=== PATIENT | male | born 1990 | race Caucasian/White ===

== ENCOUNTER 2024-06-13 11:42 | Emergency (ER) | payer OTHER, SELFPAY ==
--- OUTSIDE RECORDS SUMMARY | 2024-06-13 11:44 | XMS_ITS | Clinical Summary ---
Author Organization [employer] [facility] Address [place], [place] [address] Care Team Providers Care Technician Inventory Specialist Name Role Phone Pcp, No Primary Care Provider Unavailabl e Allergies Active Allergy Reactions Criticality Noted Date Comments Iodinated Contrast Media Hypertension 9 anxious Other reaction(s): Hypertension Iodine Hypertension 07/29/2018 [place] Flavor Anaphylaxis High 03/20/2016 Medications amLODIPine (NORVASC) 10 mg tablet Take 10 mg by mouth once daily. 2 Active propranoloL (INDERAL) 40 mg tablet Take 1 Tablet by mouth two times daily. 1 Active escitalopram oxalate (LEXAPRO) 20 mg tablet Take 1 Tablet by mouth once daily. 1 Active oseltamivir (TAMIFLU) 75 mg capsuleIndicatio ns:Influenza-lik e illness Take 1 Capsule (75 mg) by mouth two times daily for 5 days. 10 Capsule 5 06/13/19 25 Active predniSONE (DELTASONE) 20 mg tabletIndication s:Influenza-like illness,Communit y acquired pneumonia of right lung, unspecified part of lung Take 2 Tablets (40 mg) by mouth once daily with a meal for 5 days. 10 Tablet 5 06/13/19 25 Active azithromycin (ZITHROMAX) 500 mg tabletIndication s:Community acquired pneumonia of right lung, unspecified part of lung Take 1 Tablet (500 mg) by mouth every 24 hours for 5 days. 5 Tablet 5 06/13/19 25 Active amoxicillin-clav ulanate (AUGMENTIN) 875-125 mg tabletIndication s:Community acquired pneumonia of right lung, unspecified part of lung,Non-recurre nt acute suppurative otitis media of left ear without spontaneous rupture of tympanic membrane Take 1 Tablet by mouth two times daily with meals for 10 days. 20 Tablet 5 06/18/19 25 Active ibuprofen (ADVIL; MOTRIN) 200 mg tabletIndication s:Influenza-like illness Take 3 Tablets (600 mg) by mouth one time for 1 dose. 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 Idiopathic. ; Hypertension Polycythemia 06/26/2007 Overview (06/08/2024): Polycythemia, Etiology Uncertain Resolved Problems Problem Noted Date Diagnosed Date Resolved Date Hematuria, microscopic 12/21/201306/08 Generalized swelling, mass, or lump of abdomen or pelvis 01/11/2009 06/08/2024 Overview (06/08/2024): LW Modifier: Mar 14. Bx=Periaortic ganglioma. ; Mass Abdominal Site NOS Encounters Date Type Department Care Team Description 06/08/2024 2:05 PM REFRIGERATION PERSON Office Visit [facility] [address] [place] [address] Adilene Kapoor, DINA Influenza Like Illness 06/08/2024 Travel from Last 3 Months Family History Relation Name Status Comments Father Alive Mother Alive Social History Tobacco Use Types Packs/Day Years Used Date Smoking Tobacco: Former Cigarettes Q uit: 2018 Smokeless Tobacco: Never Tobacco Cessation:Counseling Given: Not Answered Alcohol Use Standard Drinks/Week Comments Never 0 (1 standard drink = 0.6 oz pur e alcohol) Sex and Gender Information Value Date Recorded Sex Assigned at Not on file Legal Sex Male 9:28 AM REFRIGERATION PERSON Gender Identity Not on file Sexual Orientation Not on file Obstetrics History Last Filed Vital Signs Vital Sign Reading Time Taken Comments Blood Pressure 149/90 06/08/2024 3:32 PM REFRIGERATION PERSON Pulse 101 06/08/2024 3:32 PM REFRIGERATION PERSON Temperature 38.2 C (100.7 F) 06/08/2024 3:32 PM REFRIGERATION PERSON Respiratory Rate 20 06/08/2024 3:32 PM REFRIGERATION PERSON Oxygen Saturation 97% 06/08/2024 3:32 PM REFRIGERATION PERSON Inhaled Oxygen Concentration - - Weight 99.8 kg (220 lb) 06/08/2024 3:32 PM REFRIGERATION PERSON Height 172.7 cm (5' 8) 03/18/2022 9:24 AM CDT Body Mass Index 33.45 03/18/2022 9:24 AM CDT Plan of Treatment Health Maintenance Due Date Last Done Comments Tdap 2002 Depression screening for age 12+ 2003 HIV for age 15-65 2006 BMI (ht and wt on same day) for age 18+ 2009 Hepatitis C screening for ag e 18-79 2009 Tetanus booster 2011 COVID-19 vaccine series ( season) 2024 09/14/2020, 08/23/2020 Influenza for age 9-49 02/06/2024 Pneumococcal series for age 6-49 Aged Out No longer eligible b ased on patient's age to complete this topic Procedures Procedure Name Priority Date/Time Associated Diagnosis Comments INFLUENZA A/B PCR Routine 06/08/2024 2:0 5 PM REFRIGERATION PERSON Influenza-like illness from Last 3 Months Results * (ABNORMAL) INFLUENZA A/B PCR (06/08/2024 2:05 PM REFRIGERATION PERSON) INFLUENZA A PCR Positive(A) 06/09/2024 2:35 PM REFRIGERATION PERSON [facility] INFLUENZA B PCR Negative 06/09/2024 2:35 PM REFRIGERATION PERSON [facility] Other SPECIMEN FROM NASAL FOSSAE / Unknown Non-Blood / Unknown 06/08/2024 2:05 PM REFRIGERATION PERSON 06/08/2024 4:14 PM REFRIGERATION PERSON Adilene Kapoor NP MICROBIOLOGY Final Result [facility] [address] [place] [id number], from Last 3 Months Additional Health Concerns Infection Onset Date Last Indicated INFLUENZA 06/08/2024 06/08/2024 Insurance [facility] [place] [id number] MEDICA ELECT MEDICA ELECT Care Teams Technician Inventory Specialist Relationship Specialty Start Date End Date Pcp, No . PCP - General 05/02/24
--- OUTSIDE RECORDS SUMMARY | 2024-06-13 11:44 | XMS_ITS | Clinical Summary ---
Author Organization [facility] Address [address] [place] [address] Care Team Providers Care Ict Customer Support Officer Name Role Phone Luis Carlos Church PA-C Unavailable [phone] Alberto Muhammad MD Unavailable Fly Barragan Primary Care Provider [phone] Allergies Active Allergy Reactions Criticality Noted Date Comments Iodinated Contrast Media 07/29/2018 Other reaction(s): Hypertension Iodine 07/29/2018 Other reaction(s): Hypertension [place] Flavoring Agent (Non-Screening) Anaphylaxis High 03/20/2016 Medications AMLODIPINE BESYLATE PO Take 20 mg by mouth daily Active ibuprofen (ADVIL/MOTRIN) 600 MG tablet Take 1 tablet (600 mg) by mouth every 6 hours as needed for moderate pain 30 tablet 1 8 Active Additional Information Patient not taking.Reported on 05/18/2022 neomycin-polymy kaleb-hydrocortis one (CORTISPORIN) 3.5-49542-5 otic solutionIndicat ions:Infective otitis externa, right Place 3 drops into the right ear 3 times daily 10 mL 2 Active Additional Information Patient not taking.Reported on 04/04/2023 busPIRone (BUSPAR) 5 MG tablet Take 5 mg by mouth daily Active gabapentin (NEURONTIN) 300 MG capsule Take 300 mg by mouth 4 Active ondansetron (ZOFRAN ODT) 4 MG ODT tab Take 1 tablet by mouth every 8 hours as needed 4 Active losartan (COZAAR) 50 MG tablet Take 50 mg by mouth daily 4 09/17/19 25 Active desvenlafaxine (PRISTIQ) 50 MG 24 hr tablet Take 50 mg by mouth daily 4 07/11/19 25 Active Active Problems Problem Noted Date Diagnosed Date Hematuria, microscopic 12/21/2013 Tobacco use 08/25/2012 Depression, major, recurrent, moderate 2 Anxiety 12/11/2010 Essential hypertension 01/11/2009 Overview (08/12/2020): Overview: LW Modifier: Dx: 2007. Idiopathic. ; Hypertension Generalized swelling, mass, or lump of abdomen o r pelvis 01/11/2009 Overview (08/12/2020): Overview: LW Modifier: Mar 14. Bx=Periaortic ganglioma. ; Mass Abdominal Site NOS Polycythemia 06/26/2007 Overview (08/12/2020): Overview: Polycythemia, Etiology Uncertain Immunizations Name Administration Dates Next Due Flu, Unspecified 04/03/2010,04/20/2007 HEPATITIS A (PEDS 12M-18Y) 01/11/2009,12/28/2007 HIB (PRP-T) 08/20/1992, 2,1991,03/14 HepB, Unspecified 04/27/2001,11/29/2000,10/12/19 Historical DTP/aP 08/20/1992, 2,1991,03/14 Influenza (H1N1) 04/06/2009 Influenza (prior to 2023) 06/10/2012,,04/03/2010,04/13,04/20/2007 Influenza Vaccine >6 months,quad, PF 02/14/2014, 03/03/2013 Influenza Vaccine IM Ages 6- 35 Months 4 Valent (PF) 03/03/2013 MMR 01/29/2003,08/20/1992 Meningococcal (Menomune ) 12/28/2007 Meningococcal ACWY (Menactra ) 12/28/2007 OPV, trivalent, live 10/04/1995,08/20/18 93,1991,03/14 TDAP (Adacel,Boostrix) 06/12/2020 TDAP Vaccine (Boostrix) 01/11/2009 Td (Adult), Adsorbed 01/29/2003 Social History Tobacco Use Types Packs/Day Years Used Date Smoking Tobacco: Every Day Vaping Device Smokeless Tobacco: Never Alcohol Use Standard Drinks/Week Comments Yes 0 (1 standard drink = 0.6 oz pur e alcohol) rarely PHQ-2 Answer Date Recorded PHQ-2 Score 0 03/19/2023 Adolescent Education Answer Date Record ed Getting School Help Needed Not on file 03/17 Sex and Gender Information Value Date Recorded Sex Assigned at Male 07/20/2021 10:03 PM TURRET LATHE SET UP OPERATOR Legal Sex Male 3:09 AM TURRET LATHE SET UP OPERATOR Gender Identity Male 07/20/2021 10:03 PM TURRET LATHE SET UP OPERATOR Sexual Orientation Straight 07/20/2021 10 :03 PM TURRET LATHE SET UP OPERATOR Last Filed Vital Signs Vital Sign Reading Time Taken Comments Blood Pressure 155/98 01/07/2024 5:48 PM CDT Pulse 75 01/07/2024 5:48 PM CDT Temperature 36.6 C (97.9 F) 01/07/2024 5:48 PM CDT Respiratory Rate 18 01/07/2024 5:48 PM CDT Oxygen Saturation 97% 01/07/2024 5:48 PM CDT Inhaled Oxygen Concentration - - Weight 105.2 kg (232 lb) 01/07/2024 5:48 PM CDT Height 172.7 cm (5' 8) 04/15/2023 10:56 AM TURRET LATHE SET UP OPERATOR Body Mass Index 35.28 04/15/2023 10:56 AM TURRET LATHE SET UP OPERATOR Plan of Treatment Health Maintenance Due Date Last Done Comments ADVANCE CARE PLANNING 1991 ANNUAL REVIEW OF HM ORDERS 1991 DEPRESSION ACTION PLAN 1991 NICOTINE/TOBACCO CESSATION COUNSELING Q 1 YR 1991 PHQ-9 1991 HIV SCREENING 2006 HEPATITIS C SCREENING 2009 Pneumococcal Vaccine: Pediatrics (0 to 5 Years) and At-Risk Patients (6 to 49 Years) (1 of 2 - PCV) 2010 YEARLY PREVENTIVE VISIT 07/22/2021 07/22/2020 BMP 08/02/2023 08/02/2022, 10/21/2009 COVID-19 Vaccine ( season) 2024 09/14/2020, 08/23/2020 INFLUENZA VACCINE (#1) 2024 4, 03/03/2013, 03/03/2013, Additional history exists DTAP/TDAP/TD IMMUNIZATION (8 - Td or Tdap) 06/12/2030 06/12/2020, 01/11/2009, 01/29/2003, Additional history exists RSV VACCINE (1 - 1-dose 75+ series) 2066 HEPATITIS B IMMUNIZATION Completed 001, 11/29/2000, 10/11/2000 MENINGITIS IMMUNIZATION Completed 12/28/2007, 12/27 HPV IMMUNIZATION Aged Out No longer e ligible based on patient's age to complete this topic RSV MONOCLONAL ANTIBODY Aged Out No l onger eligible based on patient's age to complete this topic Procedures Procedure Name Priority Date/Time Associated Diagnosis Comments COMPREHENSIVE METABOLIC PANEL STAT 08/02/2022 12:47 AM TURRET LATHE SET UP OPERATOR from Last 3 Months or Most Recently Relevant to Health Maintenance Results * (ABNORMAL) Comprehensive metabolic panel (08/02/2022 12:47 AM TURRET LATHE SET UP OPERATOR) Sodium 137 136 - 145 mmol/L 08/02/2022 1:51 AM [facility] Potassium 4.2 3.4 - 5.3 mmol/L 08/02/2022 1:51 AM [facility] Comment:Specimen slightly he molyzed, potassium may be falsely elevated. Chloride 101 98 - 107 mmol/L 08/02/2022 1:51 AM TURRET LATHE SET UP OPERATOR [facility] Carbon Dioxide (CO2) 23 22 - 29 mmol/L 08/02/2022 1:51 AM TURRET LATHE SET UP OPERATOR [facility] Anion Gap 13 7 - 15 mmol/L 08/02/2022 1:51 AM [facility]URRET [facility]HE SET UP OPERATOR LABORATORY Urea Nitrogen 16.9 6.0 - 20.0 mg/dL 08/02/2022 1:51 AM [facility] Creatinine 1.00 0.67 - 1.17 mg/dL 08/02/2022 1:51 AM [facility] UP OPERATOR LABORATORY Calcium 9.3 8.6 - 10.0 mg/dL 08/02/2022 1:51 AM [facility] Glucose 106(H) 70 - 99 mg/dL 08/02/2022 1:51 AM [facility] UP OPERATOR [facility] Alkaline Phosphatase 66 40 - 129 U/L 08/02/2022 1:51 AM TURRET LATHE SET UP OPERATOR LABORATORY AST 48 10 - 50 U/L 08/02/2022 1:51 AM [facility] Comment:Specimen is hemolyze d which can falsely elevate AST. Analysis of a non-hemolyzed specimen may result in a lower value. ALT 50 10 - 50 U/L 08/02/2022 1:51 AM [facility] UP OPERATOR [facility] Protein Total 7.5 6.4 - 8.3 g/dL 08/02/2022 1:51 AM TUR[facility] SET UP OPERATOR LABOR[facility]ORY Albumin 4.4 3.5 - 5.2 g/dL 08/02/2022 1:51 AM [facility] Bilirubin Total 0.3 <=1.2 mg/dL 08/02/2022 1:51 AM [facility] LAT[facility] SET UP OPERATOR LABORATORY GFR Estimate >90 >60 mL/min/1.7 3m2 08/02/2022 1:51 AM [facility] UP OPERATOR LABORATORY Comment:eGFR calculated usin g 2020 CKD-EPI equation. Blood STRUCTURE OF RIGHT UPPER LIMB / Unknown Venipuncture / Unknown 08/02/2022 12:47 AM TURRET LATHE SET UP OPERATOR 08/02/2022 1:21 AM TURRET LATHE SET UP OPERATOR us Sylvia Flood DO LAB - BLOOD ORDERABLES Fin al Result LABORATORY [facility] [address] Lab (1st floor, no room number) [place] [address], [facility] [phone] from Last 3 Months or Most Recently Relevant to Health Maintenance Insurance MEDICA ESSENTIAL MEDICA ESSENTIAL WC OTHER [facility] [place] [address] [place] [id number] [employer] [facility] Member Subscriber Plan / Payer (Ef fective 2021-Present) Name:Lavon Harman Jr. Relation to Subscriber:Employee Name:[email or web address] Date of :1898 (Home) Address: [facility] [place] [address] [id number] Payer ID:[id number] Group ID:Not on file Type:Not on file Address: [facility] MEDICAL BILL REVIEW DEPT [address] [place] [address] [place] [address] [facility] [place] [address] [id number] [facility] [place] [id number] [facility] [employer] Care Teams Ict Customer Support Officer Relationship Specialty Start Date End Date Fly Barragan [address] [place] [address] PCP - General Family Medicine 10/06/23 Luis Carlos Church PA-C [address] [place] [address] [phone] Physician Motors And Generators Inspector Physician Motors And Generators Inspector - Medical 02/02/23 Alberto Muhammad MD [address] [place] [address] [phone] Assigned Surgical Provider 04/24/23
--- OUTSIDE RECORDS SUMMARY | 2024-06-13 11:44 | XMS_ITS | Referral Summary ---
Author Organization [facility] Address [address] [place] [address] Care Team Providers Care Debeaker Name Role Phone Luis Carlos Church PA-C Unavailable [phone] Alberto Muhammad MD Unavailable Fly Barragan Primary Care Provider [phone] Allergies Active Allergy Reactions Criticality Noted Date Comments Iodinated Contrast Media 07/29/2018 Other reaction(s): Hypertension Iodine 07/29/2018 Other reaction(s): Hypertension [place] Flavoring Agent (Non-Screening) Anaphylaxis High 03/20/2016 Medications AMLODIPINE BESYLATE PO Take 20 mg by mouth daily Active ibuprofen (ADVIL/MOTRIN) 600 MG tablet Take 1 tablet (600 mg) by mouth every 6 hours as needed for moderate pain 30 tablet 1 8 Active Additional Information Patient not taking.Reported on 05/18/2022 neomycin-polymy kaleb-hydrocortis one (CORTISPORIN) 3.5-81730-5 otic solutionIndicat ions:Infective otitis externa, right Place [...] Sex Assigned at Male 07/20/2021 10:03 PM RUBBER GOODS SUPERVISOR Legal Sex Male 3:09 AM RUBBER GOODS SUPERVISOR Gender Identity Male 07/20/2021 10:03 PM RUBBER GOODS SUPERVISOR Sexual Orientation Straight 07/20/2021 10 :03 PM RUBBER GOODS SUPERVISOR Last Filed Vital Signs Vital Sign Reading [...] 172.7 cm (5' 8) 04/15/2023 10:56 AM RUBBER GOODS SUPERVISOR Body Mass Index 35.28 04/15/2023 10:56 AM RUBBER GOODS SUPERVISOR Plan of Treatment Not on file Procedures Procedure Name Priority Date/Time Associated Diagnosis Comments COMPREHENSIVE METABOLIC PANEL STAT 08/02/2022 12:47 AM RUBBER GOODS SUPERVISOR from Last 3 Months or Most Recently Relevant to Health Maintenance Results * (ABNORMAL) Comprehensive metabolic panel (08/02/2022 12:47 AM RUBBER GOODS SUPERVISOR) Sodium 137 136 - 145 mmol/L 08/02/2022 1:51 AM [facility] Potassium 4.2 3.4 - 5.3 mmol/L 08/02/2022 1:51 AM [facility] Comment:Specimen slightly he molyzed, potassium may be falsely elevated. Chloride 101 98 - 107 mmol/L 08/02/2022 1:51 AM [facility] Carbon Dioxide (CO2) 23 22 - 29 mmol/L 08/02/2022 1:51 AM [facility] Anion Gap 13 7 - 15 mmol/L 08/02/2022 1:51 AM [facility] Urea Nitrogen 16.9 6.0 - 20.0 mg/dL 08/02/2022 1:51 AM [facility] Creatinine 1.00 0.67 - 1.17 mg/dL 08/02/2022 1:51 AM [facility] Calcium 9.3 8.6 - 10.0 mg/dL 08/02/2022 1:51 AM [facility] Glucose 106(H) 70 - 99 mg/dL 08/02/2022 1:51 AM [facility] Alkaline Phosphatase 66 40 - 129 U/L 08/02/2022 1:51 AM [facility] AST 48 10 - 50 U/L 08/02/2022 1:51 AM [facility] Comment:Specimen is hemolyze d which can falsely elevate AST. Analysis of a non-hemolyzed specimen may result in a lower value. ALT 50 10 - 50 U/L 08/02/2022 1:51 AM [facility] Protein Total 7.5 6.4 - 8.3 g/dL 08/02/2022 1:51 AM [facility] Albumin 4.4 3.5 - 5.2 g/dL 08/02/2022 1:51 AM [facility] Bilirubin Total 0.3 <=1.2 mg/dL 08/02/2022 1:51 AM [facility] GFR Estimate >90 >60 mL/min/1.7 3m2 08/02/2022 1:51 AM [facility] Comment:eGFR calculated usin g 2020 CKD-EPI equation. Blood STRUCTURE OF RIGHT UPPER LIMB / Unknown Venipuncture / Unknown 08/02/2022 12:47 AM RUBBER GOODS SUPERVISOR 08/02/2022 1:21 AM [facility] us Sylvia Flood DO LAB - BLOOD ORDERABLES Fin al Result LABORATORY [facility] [address] Lab (1st floor, no room number) [place] [address], [facility] [phone] from Last 3 Months or Most Recently Relevant to Health Maintenance Insurance MEDICA ESSENTIAL MEDICA ESSENTIAL OTHER [facility] [place] [address] [id number] [employer] [facility] [employer] [facility] [employer] Care Teams Debeaker Relationship Specialty Start Date End Date Fly Barragan [address] [place] [address] PCP - General Family Medicine 10/06/23 Luis Carlos Church PA-C [address] [place] [address] Physician Coat Operator Insulator Physician Coat Operator Insulator - Medical 02/02/23 Alberto Muhammad MD [address] [place] [id number] Assigned Surgical Provider 04/24/23
--- OUTSIDE RECORDS SUMMARY | 2024-06-13 11:45 | XMS_ITS | Clinical Summary ---
Author Organization [facility] Address [address] [place] [address] Care Team Providers Care Consumer Electronics Merchandiser Name Role Phone David Root MD Primary Care Provider [phone] Source Comments You are receiving this document as you are listed as the primary care provider,follow-up provider, or the patient has been referred to you for consultation.This is in compliance with the Medicare andThe [facility] System[facility] EHR Incentive Program,which states Providers who transition their patient to another setting of careor provider of care or refers their patient to another provider of care shouldprovide summary care record for each transition of care or referral. [place] [employer] Allergies Active Allergy Reactions Criticality Noted Date Comments Iodinated Contrast Media Hypertension 9 anxious [place] Flavoring Agent (Non-Screening) Anaphylaxis High 03/20/2016 Medications Medication Sig Dispensed Refills Start Date End Date Status cyclobenzaprine (FLEXERIL) 5 MG tablet Take 1-2 Tablets (5-10 mg) by mouth three times a day as needed for Muscle Spasms. Best taken before bed 20 Tablet 08/03/2023 Active diclofenac (VOLTAREN) 75 MG enteric coated tablet Take 1 Tablet (75 mg) by mouth two times a day. 30 Tablet 08/19/2023 Active ondansetron (ZOFRAN-ODT) 4 MG disintegrating tablet Take 1 Tablet (4 mg) by mouth every 8 hours as needed for Nausea. 15 Tablet 09/28/2023 Active gabapentin (NEURONTIN) 300 MG capsule Take 1 Capsule (300 mg) by mouth three times a day. Do not stop suddenly 90 Capsule 3 11/23/2023 Active amLODIPine (NORVASC) 10 MG tabletIndications:Ess ential hypertension (HRC) Take 1 Tablet (10 mg) by mouth daily. 90 Tablet 3 01/24/2024 Active busPIRone (BUSPAR) 10 MG tabletIndications:Anx iety (HRC) Take 1 Tablet (10 mg) by mouth two times a day. 180 Tablet 3 01/24/2024 01/23/2025 Active desvenlafaxine succinate (PRISTIQ) 100 MG 24 hour release tabletIndications:Anx iety (HRC) Take 1 Tablet (100 mg) by mouth daily. 90 Tablet 3 01/24/2024 Active losartan (COZAAR) 100 MG tabletIndications:Ess ential hypertension (HRC) Take 1 Tablet (100 mg) by mouth daily. 90 Tablet 3 01/24/2024 01/23/2025 Active traZODone (DESYREL) 50 MG tabletIndications:Ins omnia, unspecified type 25mg to 100mg at night as needed for sleep 60 Tablet 3 01/24/2024 Active ciprofloxacin-dexAMET Hasone (CIPRODEX) 0.3-0.1 % ear drop suspension 4 drops in right ear(s) twice daily x 10 days. 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 Idiopathic. ; Hypertension Depression, unspecified Resolved Problems Problem Noted Date Diagnosed Date Resolved Date Smoker 08/28/2014 08/08/2018 Elevated hemoglobin 12/21/2013 08/09/19 19 Hematuria, microscopic 12/21/201303/30 Nonorganic enuresis 12/11/2010 07/22/19 21 Generalized swelling, mass, or lump of abdomen or pelvis 01/11/2009 03/30/2022 Overview (01/27/2017): LW Modifier: Mar 14. Bx=Periaortic ganglioma. ; Mass Abdominal Site NOS Polycythemia 06/26/2007 03/30/2022 Overview (01/27/2017): Polycythemia, Etiology Uncertain Screening for condition 01/09/200512/2008 Overview (01/27/2017): Child and Teen Check Up Needs Varicella 06/13/2004 08/13/2004 Overview (01/27/2017): LW Onset: ; Varicella Zoster Hearing loss 11/11/2002 01/11/2009 Overview (01/27/2017): Hearing Loss NOS Encounters Date Type Department Care Team Description 04/17/2024 3:15 PM MACHINIST LINOTYPE Office Visit Otolaryngology at [address] [phone] Jhon Kilpatrick, LOURDES Right otitis media with effusion (Primary Dx) 03/26/2024 2:40 PM CDT Office Visit [facility] [address] [phone] Maria G Manley, OIL WELL PERFORATOR OPERATOR, FISHING ROD ASSEMBLER Recurrent acute serous otitis media of right ear (Primary Dx) 03/26/2024 Nurse Triage Careline [address] [place], [place] [phone] Unassigned, Provider Ear Pain 03/16/2024 10:15 AM CDT Office Visit Otolaryngology at [facility] [id number] [place] [address] [place] [phone] Jhon Kilpatrick, LOURDES Abnormal granulation tissue (Primary Dx) from Last 3 Months Immunizations Name Administration Dates Next Due DTP 08/20/1992, 2,1991,1990 Flu Vac Preserv Free (3+yrs) 06/10/2012, 05/05/2011,04/03/2010,2007,04/20/2007 H1n1 Miv Sanofi 3+ Yr (Injected) 04/06/2009 HepA Ped/Adol (1-18 yrs) 01/11/2009,12/28/2007 HepB, Unspecified Formulation 04/27/2001, 001,10/11/2000 Hib (ActHIB) 08/20/1992, 2,1991,1990 Influenza (Fluzone 0.25, 6-35 mos) 03/03/2013 Influenza IIV4 (Quadrivalent ) 0.5mL (98281) 02/14/2014,03/03/2013 Influenza, Unspecified Formulation 04/03/2010, MCV4 (Menactra) 12/28/2007 MMR 01/29/2003,08/20/1992 MPSV4 (Menomune) 12/28/2007 OPV, Trivalent (Orimune or tOPV) 996,08/20/1992,1991,1990 Pfizer Monovalent 12+ Purple Top 09/14/2020,08/05 TDAP (BOOSTRIX) 01/11/2009 Td 01/29/2003 Tdap 06/12/2020 Family History Medical History Relation Name Comments Hypertension Father Lavon Sleep apnea Father Lavon Snoring Father Lavon Vertigo Father Lavon Anxiety Mother Depression Mother Hypertension Mother Neck Pain Mother No Known Problems Brother Cancer, Lung Maternal Aunt Cancer, Lung Maternal Uncle Anxiety Sister Cancer, Colon Negative Family History Cancer, Prostate Negative Family History Relation Name Status Comments Father Lavon Alive Mother Alive Brother Alive Maternal Aunt Maternal Uncle Sister Alive Social History Tobacco Use Types Packs/Day Years Used Date Smoking Tobacco: Former Cigarettes 1 10.1 0 12/05/2005 - 12/25/2015 Passive Smoke Exposure: Past Smokeless Tobacco: Never Tobacco Cessation:Counseling Given: Not Answered Comments:Quit cigs now i vape zero nicotine flavors for the oral fixations Alcohol Use Standard Drinks/Week Comments Never 0 (1 standard drink = 0.6 oz pur e alcohol) PHQ-2 Answer Date Recorded PHQ-2 Score 3 09/17/2023 Sex and Gender Information Value Date Recorded Sex Assigned at Not on file Gender Identity Not on file Sexual Orientation Not on file Last Filed Vital Signs Vital Sign Reading Time Taken Comments Blood Pressure 140/97 03/26/2024 2:20 PM CDT Pulse 88 03/26/2024 2:20 PM CDT Temperature 36.9 C (98.4 F) 03/26/2024 2:18 PM CDT Respiratory Rate 18 03/26/2024 2:18 PM CDT Oxygen Saturation 97% 03/26/2024 2:18 PM CDT Inhaled Oxygen Concentration - - Weight 99.8 kg (220 lb) 01/24/2024 5:15 PM CDT Height 172.7 cm (5' 8) 01/24/2024 5:15 PM CDT Body Mass Index 33.45 01/24/2024 5:15 PM CDT Plan of Treatment Upcoming Encounters Date Type Department Care Team (Late st Contact Info) Description 10/16/2024 3:45 PM CDT Appointment Otol[facility]ology at [facility] [address] [phone] Jhon Kilpatrick, PA-C [address] [place] [address] Health Maintenance Due Date Last Done Comments Hep C Screening (Preventive Services) 1991 HIV Screening (Preventive Services) 2007 Adult Preventive Visit 07/22/2022 07/22/2020 COVID-19 Vaccine ( season) 2024 09/14/2020, 08/23/2020 Influenza (#1) 2024 02/14/2014, 02/06, 03/03/2013, Additional history exists DTaP/Tdap/Td (8 - Tdap) 06/12/2030 06/12/19 21, 01/11/2009, 01/11/2009, Additional history exists Zoster/Shingles (1 of 2) 2041 Hib Completed 08/20/1992, 06/07, 1991, Additional history exists IPV (Polio) Completed 10/04/1995, 08/05, 1991, Additional history exists HepB Completed 04/27/2001, 11/06, 10/11/2000 MCV4 Aged Out 12/28/2007, 12/28/2007 No lo nger eligible based on patient's age to complete this topic HepA Completed 01/11/2009, 12/28/2007 HPV Vaccine Aged Out No longer eligi ble based on patient's age to complete this topic Pneumococcal Aged Out No longer eligi ble based on patient's age to complete this topic Advance Directives * No Code Status (Latest Code Status on File) Date Activated Date Inactivated Comments 05/29/2004 8:16 PM 05/29/2004 9:16 PM Care Teams Consumer Electronics Merchandiser Relationship Specialty [place] [address] [place] [address] PCP - General Family Practice 08/22/20
[2024-06-13 12:51] VITALS: BP 156/83; PULSE 83; RESP 20; TEMP 36.9; O2SAT 98; BMI 34.2
--- NOTE | 2024-06-13 17:16 | ED.GENADULT ---
HPI - General Adult General Chief complaint: Laceration/Wound Stated complaint: left Hand laceration (deep) Time Seen by Provider: 06/13/24 16:57 History of Present Illness HPI narrative: Deep cut on left thumb. Sliced with razor blade at work while trying to remove stickers from door. Brand new blade . Currently on an abx for pneumonia, influenza and ear infection. Tetnus updated a few months ago. 34-year-old man presenting to the emergency department with concern of a laceration to his left thumb area. Sliced with a razor blade while at work. Initially not with significant pain. No complaints of sensory loss. Over time of waiting thought that he is adrenaline wore off and pain was escalating. It hurts to extend his thumb. Bleeding has been controlled with gauze wrap. Related Data Home Medications ?Medication ?Instructions ?Recorded ?Confirmed amlodipine 10 mg tablet 10 mg PO DAILY 06/13/24 06/13/24 amoxicillin 875 mg-potassium 1 tab PO BID 06/13/24 06/13/24 clavulanate 125 mg tablet ciprofloxacin 0.3 %-dexamethasone drp Otic (ear-right) 06/13/24 0.1 % ear drops,suspension desvenlafaxine succinate 100 mg 100 mg PO DAILY 06/13/24 06/13/24 tablet,extended release 24 hr gabapentin 100 mg capsule mg PO 06/13/24 losartan 100 mg tablet 100 mg PO DAILY 06/13/24 06/13/24 trazodone 50 mg tablet 25 - 75 mg PO QPM PRN insomnia 06/13/24 06/13/24 Allergies Allergy/AdvReac Type Severity Reaction Status Date / Time No Known Drug Allergies Allergy Verified 06/13/24 12:56 Review of Systems Status of ROS: Reports: 6 or more systems reviewed and unremarkable except as noted in History and below Exam Narrative: Exam Narrative: Pleasant. Dressed in work attire. NAD. Favoring left hand. Gauze is removed when I am present. Underlayer of gauze is adhered to the wound overlying the 1st metacarpal. Soaked off and cleansed in Hibiclens and water solution I remove gauze without difficulty than. There is a 1-1/2 inch laceration linear longitudinal along the dorsal aspect of the metacarpal. I anesthetize with 2 mL of 0.25% bupivacaine. With further exploration than wound is noted to be full dermal but no tendon/sheath is visible. Bleeds easily when manipulated. Extension causes pain but is intact. Const: Vital Signs, click to edit/add: Vital Signs - 24 hr 06/13/24 12:51 Temperature 98.5 F Pulse Rate [Pulse Oximeter] 83 Respiratory Rate 20 Blood Pressure [Ri ght Upper Arm] 156/83 H Pulse Oximetry 98 Oxygen Delivery Me thod Room Air Documenting provider has reviewed patient's vital signs: yes Course Vital Signs Vital signs: Initial Vital Signs Temperature 98.5 F 06/13/24 12:51 Temperature Source Temporal Artery Scan 06/13/24 12:51 Pulse Rate 83 06/13/24 12:51 Respiratory Rate 20 06/13/24 12:51 Blood Pressure 156/83 H 06/13/24 12:51 Blood Pressure Mean 107 H 06/13/24 12:51 Blood Pressure Position Sitting 06/13/24 12:51 Pulse Oximetry 98 06/13/24 12:51 Oxygen Delivery Method Room Air 06/13/24 12:51 Vital Signs Temperature 98.5 F 06/13/24 12:51 Pulse Rate 83 06/13/24 12:51 Respiratory Rate 20 06/13/24 12:51 Blood Pressure 156/83 H 06/13/24 12:51 Pulse Oximetry 98 06/13/24 12:51 Oxygen Delivery Method Room Air 06/13/24 12:51 Temperature 98.5 F 06/13/24 12:51 Pulse Rate 83 06/13/24 12:51 Respiratory Rate 20 06/13/24 12:51 Blood Pressure 156/83 H 06/13/24 12:51 Pulse Oximetry 98 06/13/24 12:51 Oxygen Delivery Method Room Air 06/13/24 12:51 Medical Decision Making [facility] Narrative Medical decision making narrative: I cleansed this wound further with Shur-Clens solution This will need repair. Placed 5-0 Ethilon interrupted sutures with very good wound approximation and trace ooze of bleeding; controlled Antibiotic ointment and gauze wrap placed Is already taking I think amoxicillin or maybe even Augmentin which would function as prophylaxis. See patient discharge plan for further discussion sutures out in 8-10 days. antibiotic ointment for 5-6 days and then to a dry dressing. ok to get wet but try not to soak while sutures are in. Watch for spreading redness after 2 days accompanied by heat, swelling, marked increase in pain, purulent drainage. Change current dressing on . Can probably just go to a large Band-Aid. Discharge Plan Discharge Clinical Impression: Hand laceration Patient Disposition: Home, Self-Care Condition: Improved Additional Instructions: sutures out in 8-10 days. antibiotic ointment for 5-6 days and then to a dry dressing. ok to get wet but try not to soak while sutures are in. Watch for spreading redness after 2 days accompanied by heat, swelling, marked increase in pain, purulent drainage. Change current dressing on . Can probably just go to a large Band-Aid. Prescriptions: No Action amlodipine 10 mg tablet 10 mg PO DAILY amoxicillin-pot clavulanate 875-125 mg tablet 1 tab PO BID trazodone 50 mg tablet 25 - 75 mg PO QPM PRN (Reason: insomnia) gabapentin 100 mg capsule PO losartan 100 mg tablet 100 mg PO DAILY ciprofloxacin-dexamethasone 0.3-0.1 % drops,suspension Otic (ear-right) desvenlafaxine succinate 100 mg tablet extended release 24 hr 100 mg PO DAILY Follow Up/Referrals: Provider,Not a Local [Non-Staff] - Stand Alone Forms: [employer] Info Instructions
--- OUTSIDE RECORDS SUMMARY | 2024-06-13 17:58 | XMS_ITS | Referral Summary ---
Author Organization [facility] Address [address] [place] [address] Care Team Providers Care Marketing Consultant Name Role Phone Luis Carlos Church PA-C Unavailable [phone] Alberto Muhammad MD Unavailable Fly Barragan Primary Care Provider [phone] Allergies Active Allergy Reactions Criticality Noted Date Comments Iodinated Contrast Media 07/29/2018 Other reaction(s): Hypertension Iodine 07/29/2018 Other reaction(s): Hypertension [place] Flavoring Agent (Non-Screening) Anaphylaxis High 03/20/2016 Medications AMLODIPINE BESYLATE PO Take 20 mg by mouth daily Active ibuprofen (ADVIL/MOTRIN) 600 MG tablet Take 1 tablet (600 mg) by mouth every 6 hours as needed for moderate pain 30 tablet 1 8 Active Additional Information Patient not taking.Reported on 05/18/2022 neomycin-polymy kaleb-hydrocortis one (CORTISPORIN) 3.5-00165-3 otic solutionIndicat ions:Infective otitis externa, right Place [...] Sex Assigned at Male 07/20/2021 10:03 PM PROTEIN SCIENTIST Legal Sex Male 3:09 AM PROTEIN SCIENTIST Gender Identity Male 07/20/2021 10:03 PM PROTEIN SCIENTIST Sexual Orientation Straight 07/20/2021 10 :03 PM PROTEIN SCIENTIST Last Filed Vital Signs Vital Sign Reading [...] 172.7 cm (5' 8) 04/15/2023 10:56 AM PROTEIN SCIENTIST Body Mass Index 35.28 04/15/2023 10:56 AM PROTEIN SCIENTIST Plan of Treatment Not on file Procedures Procedure Name Priority Date/Time Associated Diagnosis Comments COMPREHENSIVE METABOLIC PANEL STAT 08/02/2022 12:47 AM PROTEIN SCIENTIST from Last 3 Months or Most Recently Relevant to Health Maintenance Results * (ABNORMAL) Comprehensive metabolic panel (08/02/2022 12:47 AM PROTEIN SCIENTIST) Sodium 137 136 - 145 mmol/L 08/02/2022 1:51 AM [facility] Potassium 4.2 3.4 - 5.3 mmol/L 08/02/2022 1:51 AM [facility] Comment:Specimen slightly he molyzed, potassium may be falsely elevated. Chloride 101 98 - 107 mmol/L 08/02/2022 1:51 AM [facility] Carbon Dioxide (CO2) 23 22 - 29 mmol/L 08/02/2022 1:51 AM [facility] Anion Gap 13 7 - 15 mmol/L 08/02/2022 1:51 AM [facility] Urea Nitrogen 16.9 6.0 - 20.0 mg/dL 08/02/2022 1:51 AM [facility] Creatinine 1.00 0.67 - 1.17 mg/dL 08/02/2022 1:51 AM [facility] Calcium 9.3 8.6 - 10.0 mg/dL 08/02/2022 1:51 AM [facility] Glucose 106(H) 70 - 99 mg/dL 08/02/2022 1:51 AM [facility] Alkaline Phosphatase 66 40 - 129 U/L 08/02/2022 1:51 AM [facility] AST 48 10 - 50 U/L 08/02/2022 1:51 AM [facility] Comment:Specimen is hemolyze d which can falsely elevate AST. Analysis of a non-hemolyzed specimen may result in a lower value. ALT 50 10 - 50 U/L 08/02/2022 1:51 AM [facility] Protein Total 7.5 6.4 - 8.3 g/dL 08/02/2022 1:51 AM [facility] Albumin 4.4 3.5 - 5.2 g/dL 08/02/2022 1:51 AM [facility] Bilirubin Total 0.3 <=1.2 mg/dL 08/02/2022 1:51 AM [facility] GFR Estimate >90 >60 mL/min/1.7 3m2 08/02/2022 1:51 AM [facility] Comment:eGFR calculated usin g 2020 CKD-EPI equation. Blood STRUCTURE OF RIGHT UPPER LIMB / Unknown Venipuncture / Unknown 08/02/2022 12:47 AM PROTEIN SCIENTIST 08/02/2022 1:21 AM [facility] us Sylvia Flood DO LAB - BLOOD ORDERABLES Fin al Result LABORATORY [facility] [address] Lab (1st floor, no room number) [place] [address], [facility] [phone] from Last 3 Months or Most Recently Relevant to Health Maintenance Insurance MEDICA ESSENTIAL MEDICA ESSENTIAL OTHER Critical [place] [address] [place] [id number] [employer] [facility] [employer] [employer] Care Teams Marketing Consultant Relationship Specialty Start Date End Date Fly Barragan [address] [place] [address] PCP - General Family Medicine 10/06/23 Luis Carlos Church PA-C [address] [place] [address] Physician Customer Service Consultant Physician Customer Service Consultant - Medical 02/02/23 Alberto Muhammad MD [address] [place] [address] [phone] Assigned Surgical Provider 04/24/23
--- OUTSIDE RECORDS SUMMARY | 2024-06-13 17:58 | XMS_ITS | Clinical Summary ---
Author Organization [facility] Address [address] [place] [address] Care Team Providers Care Assembly Press Operator Name Role Phone Luis Carlos Church PA-C Unavailable [phone] Alberto Muhammad MD Unavailable Fly Barragan Primary Care Provider Allergies Active Allergy Reactions Criticality Noted Date Comments Iodinated Contrast Media 07/29/2018 Other reaction(s): Hypertension Iodine 07/29/2018 Other reaction(s): Hypertension [place] Flavoring Agent (Non-Screening) Anaphylaxis High 03/20/2016 Medications AMLODIPINE BESYLATE PO Take 20 mg by mouth daily Active ibuprofen (ADVIL/MOTRIN) 600 MG tablet Take 1 tablet (600 mg) by mouth every 6 hours as needed for moderate pain 30 tablet 1 8 Active Additional Information Patient not taking.Reported on 05/18/2022 neomycin-polymy kaleb-hydrocortis one (CORTISPORIN) 3.5-43913-1 otic solutionIndicat ions:Infective otitis externa, right Place [...] Sex Assigned at Male 07/20/2021 10:03 PM ENCYCLOPEDIA RESEARCH WORKER Legal Sex Male 3:09 AM ENCYCLOPEDIA RESEARCH WORKER Gender Identity Male 07/20/2021 10:03 PM ENCYCLOPEDIA RESEARCH WORKER Sexual Orientation Straight 07/20/2021 10 :03 PM ENCYCLOPEDIA RESEARCH WORKER Last Filed Vital Signs Vital Sign Reading [...] 172.7 cm (5' 8) 04/15/2023 10:56 AM ENCYCLOPEDIA RESEARCH WORKER Body Mass Index 35.28 04/15/2023 10:56 AM ENCYCLOPEDIA RESEARCH WORKER Plan of Treatment Health Maintenance Due Date [...] COMPREHENSIVE METABOLIC PANEL STAT 08/02/2022 12:47 AM ENCYCLOPEDIA RESEARCH WORKER from Last 3 Months or Most Recently Relevant to Health Maintenance Results * (ABNORMAL) Comprehensive metabolic panel (08/02/2022 12:47 AM ENCYCLOPEDIA RESEARCH WORKER) Sodium 137 136 - 145 mmol/L 08/02/2022 1:51 AM [facility] Potassium 4.2 3.4 - 5.3 mmol/L 08/02/2022 1:51 AM [facility] Comment:Specimen slightly he molyzed, potassium may be falsely elevated. Chloride 101 98 - 107 mmol/L 08/02/2022 1:51 AM ENCYCLOPEDIA RESEARCH WORKER [facility] Carbon Dioxide (CO2) 23 22 - 29 mmol/L 08/02/2022 1:51 AM ENCYCLOPEDIA RESEARCH WORKER [facility] Anion Gap 13 7 - 15 mmol/L 08/02/2022 1:51 AM ENCYCLOPEDIA RESEARCH [facility] Urea Nitrogen 16.9 6.0 - 20.0 mg/dL 08/02/2022 1:51 AM [facility] Creatinine 1.00 0.67 - 1.17 mg/dL 08/02/2022 1:51 AM ENCYCLOPEDIA RESEARCH [facility] Calcium 9.3 8.6 - 10.0 mg/dL 08/02/2022 1:51 AM [facility] Glucose 106(H) 70 - 99 mg/dL 08/02/2022 1:51 AM ENCYCLOPEDIA RESEARCH WORKER [facility] Alkaline Phosphatase 66 40 - 129 U/L 08/02/2022 1:51 AM ENCYCLOPEDIA RESEARCH WORKER [facility] AST 48 10 - 50 U/L 08/02/2022 1:51 AM [facility] Comment:Specimen is hemolyze d which can falsely elevate AST. Analysis of a non-hemolyzed specimen may result in a lower value. ALT 50 10 - 50 U/L 08/02/2022 1:51 AM ENCYCLOPEDIA [facility]EARCH [facility] Protein Total 7.5 6.4 - 8.3 g/dL 08/02/2022 1:51 AM ENCYCLOPEDIA RESEARCH [facility] Albumin 4.4 3.5 - 5.2 g/dL 08/02/2022 1:51 AM [facility] Bilirubin Total 0.3 <=1.2 mg/dL 08/02/2022 1:51 AM ENCYCLOPEDIA RESEARCH WORKER [facility] GFR Estimate >90 >60 mL/min/1.7 3m2 08/02/2022 1:51 AM ENCYCLOPEDIA RESEARCH [facility] Comment:eGFR calculated usin g 2020 CKD-EPI equation. Blood STRUCTURE OF RIGHT UPPER LIMB / Unknown Venipuncture / Unknown 08/02/2022 12:47 AM ENCYCLOPEDIA RESEARCH WORKER 08/02/2022 1:21 AM ENCYCLOPEDIA RESEARCH WORKER us Sylvia Flood DO LAB - BLOOD ORDERABLES Fin al Result LABORATORY [facility] [address] Lab (1st floor, no room number) [place] [address], [facility] [phone] from Last 3 Months or Most Recently Relevant to Health Maintenance Insurance MEDICA ESSENTIAL MEDICA ESSENTIAL WC OTHER [facility] [place] [address] [address] [id number] [employer] [facility] Member Subscriber Plan / Payer (Ef fective 2021-Present) Name:Lavon Harman Jr. Relation to Subscriber:Employee Name:[employer] Date of :1898 (Home) Address: [facility] [place] [address] Payer ID:[id number] Group ID:Not on file Type:Not on file Address: [facility] MEDICAL BILL REVIEW DEPT [address] [place] [address] [place] [address] [facility] [address] [id number] [facility] [place] [address] [facility] [employer]UAL INSURANCE Care Teams Assembly Press Operator Relationship Specialty Start Date End Date Fly Barragan [address] [place] [address] PCP - General Family Medicine 10/06/23 Luis Carlos Church PA-C [address] [place] [address] [phone] Physician Director Global Market Research Physician Director Global Market Research - Medical 02/02/23 Alberto Muhammad MD [address] [place] [address] [phone] Assigned Surgical Provider 04/24/23
--- OUTSIDE RECORDS SUMMARY | 2024-06-13 17:58 | XMS_ITS | Clinical Summary ---
Author Organization [facility] Address [address] [place] [address] Care Team Providers Care Personal Carer Name Role Phone David Root MD Primary Care Provider [phone] Source Comments You are receiving this document as you are listed as the primary care provider,follow-up provider, or the patient has been referred to you for consultation.This is in compliance with the Medicare and[facility] EHR Incentive Program,which states Providers who transition their patient to another setting of careor provider of care or refers their patient to another provider of care shouldprovide summary care record for each transition of care or referral. 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 [place], [place] [phone] Unassigned, Provider Ear Pain 03/16/2024 10:15 AM CDT Office Visit Otolaryngology at [facility] [address] [place] [address] [place] [phone] Jhon Kilpatrick, LOURDES Abnormal granulation tissue (Primary Dx) from Last 3 Months Immunizations Name Administration Dates Next Due DTP 08/20/1992, 2,1991,1990 Flu Vac Preserv Free (3+yrs) 06/10/2012, 05/05/2011,04/03/2010,2007,04/20/2007 H1n1 Miv Sanofi 3+ Yr (Injected) 04/06/2009 HepA Ped/Adol (1-18 yrs) 01/11/2009,12/28/2007 HepB, Unspecified Formulation 04/27/2001, 001,10/11/2000 Hib (ActHIB) 08/20/1992, 2,1991,1990 Influenza (Fluzone 0.25, 6-35 mos) 03/03/2013 Influenza IIV4 (Quadrivalent ) 0.5mL (19146) 02/14/2014,03/03/2013 Influenza, Unspecified Formulation 04/03/2010, MCV4 (Menactra) [...] 10/16/2024 3:45 PM CDT Appointment Otolaryngology at [facility] [address] [phone] Jhon Kilpatrick, PA-C [address] [place] [address] Health Maintenance Due Date Last [...] 8:16 PM 05/29/2004 9:16 PM Care Teams Personal Carer Relationship Specialty [place] [address] [place] [address] PCP - General Family Practice 08/22/20
--- OUTSIDE RECORDS SUMMARY | 2024-06-13 17:58 | XMS_ITS | Encounter Summary ---
Author Organization [facility] Address [address] [place] [id number] Care Team Providers Care Consumer Loan Officer Name Role Phone No Ref-Primary, Physician Primary Care Provider Mauricio Gonzalez MD Unavailable [phone] Fly Barragan Primary Care Provider [phone] Luis Carlos Church PA-C Unavailable [phone] Alberto Muhammad MD Unavailable Fly Barragan Primary Care Provider [phone] Encounter Details Date Type Department Care Team (Late st Contact Info) Description 05/06/2021 Documentation Only INTERFACED REPORT Unknown, Provider Social History Tobacco Use Types Packs/Day Years Used Date Smoking Tobacco: Former Smokeless Tobacco: Never Alcohol Use Standard Drinks/Week Comments Yes 0 (1 standard drink = 0.6 oz pur e alcohol) rarely Sex and Gender Information Value Date Recorded Sex Assigned at Male 07/20/2021 10:03 PM DISPOSAL WORKER Legal Sex Male 3:09 AM DISPOSAL WORKER Gender Identity Male 07/20/2021 10:03 PM DISPOSAL WORKER Sexual Orientation Straight 07/20/2021 10 :03 PM DISPOSAL WORKER COVID-19 Exposure Response Date Recorded In the last month, have you been in contact with someone who was confirmed or suspected to have Coronavirus / COVID-19? No / Unsure 05/06/2021 1:25 PM DISPOSAL WORKER documented as of this encounter Plan of Treatment Not on file documented as of this encounter Visit Diagnoses Not on filedocumented in this encounter Additional Health Concerns Infection Onset Date Last Indicated Resolved Time Rule Out COVID-19 01/19/2022 01/19/2022 01/20/2022 12:28 PM CDT COVID-19 01/19/2022 01/19/2022 02/09/2022 11:3 9 PM CDT documented as of this encounter Care Teams Consumer Loan Officer Relationship Specialty Start Date End Date No Ref-Primary, Physician PCP - General 03/20/16 08/12/21 Fly Barragan [address] [place] [address] PCP - General Family Medicine 08/13/21 10/05/23 Fly Barragan [address] [place] [address] PCP - General Family Medicine 10/06/23 Mauricio Gonzalez MD [address] [place] [id number] Assigned Musculoskeletal Provider 04/21/20 10/18/21 Luis Carlos Church PA-C [address] [place] [address] Physician Embedded Software Architect Physician Embedded Software Architect - Medical 02/02/23 Alberto Muhammad MD [address] [place] [address] [id number] Assigned Surgical Provider 04/24/23 documented as of this encounter
--- OUTSIDE RECORDS SUMMARY | 2024-06-13 17:58 | XMS_ITS | Clinical Summary ---
Author Organization [facility] Address [place], [place] [address] Care Team Providers Care Imaging Center Manager Name Role Phone Pcp, No Primary Care Provider Unavailabl e Allergies Active Allergy Reactions Criticality Noted Date Comments Iodinated Contrast Media Hypertension 9 anxious Other reaction(s): Hypertension Iodine Hypertension 07/29/2018 [place] Flavor Anaphylaxis High 03/20/2016 Medications amLODIPine (NORVASC) [...] Department Care Team Description 06/08/2024 2:05 PM NAVAL [employer]CRE[employer] Office Visit [facility] [address] [place] [address] Adilene Kapoor, DINA Influenza Like [...] on file Legal Sex Male 9:28 AM [employer] Gender Identity Not on file Sexual Orientation Not on file Obstetrics History Last Filed Vital Signs Vital Sign Reading Time Taken Comments Blood Pressure 149/90 06/08/2024 3:32 PM [employer] Pulse 101 06/08/2024 3:32 PM [employer] Temperature 38.2 C (100.7 F) 06/08/2024 3:32 PM [employer] Respiratory Rate 20 06/08/2024 3:32 PM [employer] Oxygen Saturation 97% 06/08/2024 3:32 PM [employer] Inhaled Oxygen Concentration - - Weight 99.8 kg (220 lb) 06/08/2024 3:32 PM [employer] Height 172.7 cm (5' 8) 03/18/2022 9:24 [...] A/B PCR Routine 06/08/2024 2:0 5 PM [employer] Influenza-like illness from Last 3 Months Results * (ABNORMAL) INFLUENZA A/B PCR (06/08/2024 2:05 PM [employer]) INFLUENZA A PCR Positive(A) 06/09/2024 2:35 PM [employer] [facility] INFLUENZA B PCR Negative 06/09/2024 2:35 PM [employer] [facility] Other SPECIMEN FROM NASAL FOSSAE / Unknown Non-Blood / Unknown 06/08/2024 2:05 PM [employer] 06/08/2024 4:14 PM [employer] Adilene Kapoor NP MICROBIOLOGY Final Result [facility] [address] [place] [id number], from Last 3 Months Additional Health Concerns Infection Onset Date Last Indicated INFLUENZA 06/08/2024 06/08/2024 Insurance [facility] [place] [id number] MEDICA ELECT MED[employer] ELECT Care Teams Imaging Center Manager Relationship Specialty Start Date End Date Pcp, No . PCP - General 05/02/24
== END 2024-06-13 18:00 | disposition home or self-care (01) ==
LOC: ED 17:56
PROVIDERS: Emergency Provider Family Medicine; PCP Physician Assistant Medical
DX: S61.012A Laceration without foreign body of left thumb without damage to nail, initial encounter (principal); W26.0XXA Contact with knife, initial encounter
CPT/HCPCS: 12001; 99283; 99284